=== PATIENT | female | born 1950 | race Hispanic/Latino ===

== ENCOUNTER 2020-02-17 06:26 | Outpatient (CLI) | payer BC, OTHER ==
[2020-02-18 13:01] LABS: SARS-CoV-2 MS2 Positive; SARS-CoV-2 N Gene Negative; SARS-CoV-2 S Gene Negative; SARS-CoV-2 by NAA Not Detected (NotDetected); SARS-CoV-2 orf1ab Negative
== END 2020-02-17 06:27 | disposition home or self-care (01) ==
LOC: LABBT 06:26
PROVIDERS: ATTEND Internal Medicine Gastroenterology
DX: Z12.11 Encounter for screening for malignant neoplasm of colon (principal); R14.0 Abdominal distension (gaseous); I48.91 Unspecified atrial fibrillation; Z20.828 Contact with and (suspected) exposure to other viral communicable diseases
CPT/HCPCS: 87635; U0003

== ENCOUNTER 2020-02-20 08:47 | Day surgery (SDC) | payer BC ==
[2020-02-18 11:30] VITALS: BMI 34.2
[2020-02-20] MEDS ORDERED: Lidocaine 1% PF 5 ML VIAL ONE (10:01)
[2020-02-20] MEDS ORDERED: Glycopyrrolate 0.2 MG/ML 5 ML SYRINGE ONE (10:01)
[2020-02-20] MEDS ORDERED: PROPOFOL 200 MG/20 ML VIAL ONE (10:01)
[2020-02-20] MEDS ORDERED: EPHEDRINE 25 MG/5 ML SYRINGE ONE (10:01)
[2020-02-20] MEDS ORDERED: Ondansetron ODT 4 MG TAB ONE (11:49)
--- NOTE | 2020-02-20 15:49 | OP ---
DATE OF PROCEDURE: 02/20/2020 PROCEDURE PERFORMED: Colonoscopy with snare polypectomy and biopsy. PREPROCEDURE DIAGNOSES: 1. Colon cancer screening. 2. Chronic unexplained diarrhea. POSTPROCEDURE DIAGNOSES: 1. Exam to cecum; good bowel preparation. 2. Diffusely redundant colon. 3. Grossly normal appearing colonic mucosa, biopsied. 4. 4 mm sessile polyp in the transverse colon, removed by cold snare technique. 5. Small internal hemorrhoids. 6. Otherwise normal colonoscopy. DESCRIPTION OF PROCEDURE: Written informed consent was obtained. Upon completion of the EGD, the patient was repositioned for the colonoscopy. Total intravenous anesthesia was administered by Mr. Ramón Monteiro CRNA. The patient was in the left lateral decubitus position. A digital rectal exam showed no significant abnormalities. A Pentax video colonoscope was inserted through the anal canal and advanced under direct visualization to the cecum. Position in the cecum was verified by clear identification of the appendiceal orifice and the ileocecal valve. The quality of the bowel preparation was good. Each colon segment was examined carefully as the colonoscope was slowly withdrawn from the cecum. Vascular pattern and haustral folds appeared normal. There was no endoscopic evidence of colitis. However, biopsies were obtained in the right and left colon to evaluate for microscopic colitis. In the transverse colon, a 4 mm sessile polyp was identified and removed by cold snare technique. The tissue was retrieved for histology. No other synchronous polyps were identified. In the rectum, a retroflexed view demonstrated small internal hemorrhoids that were not actively bleeding. The colon was decompressed as the colonoscope was removed from the patient. There were no immediate complications. She was transferred to the Day Stay surgery area for postprocedure monitoring. RECOMMENDATIONS: 1. Await biopsy results. 2. Ask the patient to call me in 1 week for biopsy results. 3. Recommend surveillance colonoscopy in 5 years. 4. Consider a 6-week trial of probiotic therapy, Align 1 capsule daily (samples provided). 5. Follow up in GI clinic in 4 to 6 weeks. 6. Resume previous medications and diet. Job ID: [id number] [facility]
--- NOTE | 2020-02-20 16:13 | OP ---
DATE OF PROCEDURE: 02/20/2020 TITLE OF PROCEDURE: Esophagogastroduodenoscopy with biopsy. PREPROCEDURE DIAGNOSES: 1. Chronic diarrhea, suspected small bowel disease. 2. Abdominal pain and bloating. POSTPROCEDURE DIAGNOSES: 1. Exam to 2nd portion of duodenum. 2. Grade A distal esophagitis at 38 cm, biopsied. 3. Grossly normal-appearing stomach, biopsied for PyloriTek. 4. Normal duodenum, biopsied. PROCEDURE IN DETAIL: Written informed consent was obtained. The patient was brought to the endoscopy suite. Total intravenous anesthesia was administered by Mr. Isaak Monteiro CRNA. The patient was placed in the left lateral decubitus position. A bite block was inserted into the mouth. A Pentax video diagnostic gastroscope was introduced into the oral cavity and the esophagus was carefully intubated. The gastroscope was advanced under direct visualization to the 2nd portion of the duodenum. Endoscopic findings revealed a few small chronic erosions at the GE junction consistent with a grade A esophagitis. Biopsies were obtained for histology. No ulcers were seen. The stomach was entered and carefully examined. This included a retroflexed view of the cardia and fundus. The stomach was grossly unremarkable. A gastric body biopsy was obtained for PyloriTek testing. The duodenum from the bulb to the 2nd portion was then inspected and appeared grossly normal. Biopsies were obtained in the proximal duodenum for histology. The stomach was then decompressed as the endoscope was completely removed from the patient. There were no immediate complications. She was then repositioned for the colonoscopy. RECOMMENDATIONS: 1. Await pathology results. 2. Ask the patient to call me in 1 week for pathology results. 3. Resume previous medications and diet. Initiate a 6 week course of omeprazole 20 mg PO Q AM. 4. Follow up in GI clinic in 4 to 6 weeks. Job ID: [id number] [facility]
== END 2020-02-20 12:35 | disposition home or self-care (01) ==
LOC: SDC 08:47
PROVIDERS: ATTEND Internal Medicine Gastroenterology
PROC: 0DB78ZX Excision of Stomach, Pylorus, Via Natural or Artificial Opening Endoscopic, Diagnostic (ICD-10-PCS; principal; 2020-02-20)
PROC: 0DBF8ZX Excision of Right Large Intestine, Via Natural or Artificial Opening Endoscopic, Diagnostic (ICD-10-PCS; principal; 2020-02-20)
PROC: 0DBL8ZX Excision of Transverse Colon, Via Natural or Artificial Opening Endoscopic, Diagnostic (ICD-10-PCS; principal; 2020-02-20)
PROC: 0DBG8ZX Excision of Left Large Intestine, Via Natural or Artificial Opening Endoscopic, Diagnostic (ICD-10-PCS; principal; 2020-02-20)
PROC: 0DB98ZX Excision of Duodenum, Via Natural or Artificial Opening Endoscopic, Diagnostic (ICD-10-PCS; principal; 2020-02-20)
DX: K52.9 Noninfective gastroenteritis and colitis, unspecified (principal); D12.3 Benign neoplasm of transverse colon; K21.0 Gastro-esophageal reflux disease with esophagitis; R14.0 Abdominal distension (gaseous); K64.8 Other hemorrhoids; E78.5 Hyperlipidemia, unspecified; E03.9 Hypothyroidism, unspecified; F32.9 Major depressive disorder, single episode, unspecified; F41.9 Anxiety disorder, unspecified; I48.0 Paroxysmal atrial fibrillation; Z79.899 Other long term (current) drug therapy; Z91.048 Other nonmedicinal substance allergy status
CPT/HCPCS: 87081; 88305; 88312; 88313; J2704; Q0162

== ENCOUNTER 2025-04-05 17:52 | Emergency (ER) | payer BC ==
[2025-04-05 19:32] LABS: #Basophils Less than 0.03 10x3/uL (0.0-0.2); #Eosinophils 0.06 10x3/uL (0.0-0.7); #Monocytes 0.46 10x3/uL (0.11-0.59); #Neutrophils 6.02 10x3/uL (1.40-6.50); %Basophils 0.1 % (0.0-1.0); %Eosinophils 0.8 % (0.0-10.0); %Lymphocytes 10.7 % (21.0-51.0); %Monocytes 6.3 % (0.0-10.0); %Neutrophils 81.8 % (42.0-75.0); Hematocrit 41.0 % (36.0-47.0); Hemoglobin 13.3 g/dL (12.0-16.0); Mean Corpuscular Hemoglobin 29.0 pg (27.0-31.0); Mean Corpuscular Volume 89.5 fL (78.0-98.0); Platelet Count 229 10x3/uL (130-400); Red Blood Cell (RBC) Count 4.58 mill/uL (4.20-5.40); White Blood Cell (WBC) Count 7.36 10x3/uL (4.8-10.8)
[2025-04-05] MEDS ORDERED: Nitroglycerin 2% Ointment 1 INCH/1 GM Packet ONE (19:36)
[2025-04-05] MEDS ORDERED: Aspirin Chewable 81 MG TAB ONE ×2 (19:37→19:59)
[2025-04-05] MEDS ORDERED: Pantoprazole 40 MG VIAL ONE (19:37)
[2025-04-05 19:49] LABS: ALT (SGPT) 29 U/L (Less than 34); AST (SGOT) 32 U/L (11-34); Albumin 3.7 g/dL (3.1-4.5); Alkaline Phosphatase 98 U/L (40-110); Anion Gap 15 mmol/L (10-20); BUN (Urea Nitrogen) 14 mg/dL (9.8-20.1); Bilirubin, Total 0.8 mg/dL (0.3-1.2); Calc. Creatinine Clearance 0 mL/min (70-130); Calcium 8.8 mg/dL (7.8-10.44); Carbon Dioxide 22 mmol/L (23-31); Chloride 109 mmol/L (98-107); Globulin 2.8 g/dL (2.4-3.5); Glucose 111 mg/dL (83-110); Potassium 3.3 mmol/L (3.5-5.1); Sodium 143 mmol/L (136-145)
== END 2025-04-05 23:12 | disposition home or self-care (01) ==
LOC: ERS 17:52
DX: R07.89 Other chest pain (principal); K29.00 Acute gastritis without bleeding
CPT/HCPCS: 36415; 71045; 80053; 83880; 84484; 85025; 93005; 96374; J2470